=== PATIENT | female | born 1955 | race Caucasian/White ===

== ENCOUNTER 2021-11-13 17:59 | Inpatient (IN) | payer MEDICARE ==
[~2021-11-13] VITALS: Ht 149.9 cm; Wt 29.5 kg
[2021-11-13 19:05] LABS: BASOPHIL 0.6 % (0-2); EOSINOPHIL 0.5 % (0-7); HCT 40.3 % (37.0-47.0); HGB 13.6 g/dl (12.5-16.0); LYMPHOCYTE 23.3 % (15-48); MCH 32.6 pg (25.0-31.0); MCHC 33.7 g/dL (32.0-36.0); MCV 96.6 fL (78.0-100.0); MONOCYTE 8.3 % (0-12); MPV 10.4 fL (6.0-9.5); NEUTROPHIL 67.1 % (41-80); NRBC 0; PLT 262 K/uL (150-400); RBC 4.17 M/uL (4.20-5.40); RDW 12.9 % (11.5-14.0); WBC 6.7 K/uL (4.0-10.5)
[2021-11-13 19:15] LABS: ALBUMIN 3.6 g/dL (3.4-5.0); BILIRUBIN - TOTAL 0.4 mg/dL (0.2-1.0); BUN/CREAT RATIO (CALC) 20.6 RATIO; CREATININE 0.34 mg/dL (0.51-0.95); GLOBULIN (CALCULATION) 3.7 g/dL; POTASSIUM 3.5 mmol/L (3.5-5.1); TOTAL PROTEIN 7.3 g/dL (6.4-8.2)
[2021-11-13 19:20] LABS: INR 0.84 (0.9-1.2); PROTHROMBIN TIME 11.3 SECONDS (11.9-13.9); PTT 30.1 SECONDS (24.9-34.6)
[2021-11-13 19:31] LABS: CORONAVIRUS 2019 SARS-COV-2 NEGATIVE (NEGATIVE); INFLUENZA A NAA NEGATIVE (NEGATIVE)
[2021-11-13] MEDS ORDERED: LORAZEPAM1 MG PO (23:11)
[2021-11-13] MEDS ORDERED: SYMBICORT 16010.2 GM INH (23:11)
[2021-11-13] MEDS ORDERED: SPIRIVA RESPIMAT4 GM INH ×2 (23:12→23:13)
[2021-11-13] MEDS ORDERED: AMLODIPINE BESYL5 MG PO (23:13)
[2021-11-13] MEDS ORDERED: VENTOLIN HFA18 GM INH (23:14)
[2021-11-13] MEDS ORDERED: SINGULAIR10 MG PO (23:15)
[2021-11-13] MEDS ORDERED: NYSTATIN 112 TSP/BTL PO (23:16)
[2021-11-14 06:10] LABS: BASOPHIL 0.4 % (0-2); EOSINOPHIL 0 % (0-7); HCT 37.5 % (37.0-47.0); HGB 12.5 g/dl (12.5-16.0); MCHC 33.3 g/dL (32.0-36.0); MCV 95.9 fL (78.0-100.0); MONOCYTE 5.1 % (0-12); MPV 10.3 fL (6.0-9.5); NEUTROPHIL 79.1 % (41-80); NRBC 0; PLT 212 K/uL (150-400); RBC 3.91 M/uL (4.20-5.40); WBC 2.7 K/uL (4.0-10.5)
[2021-11-14 06:44] LABS: BILIRUBIN - TOTAL 0.3 mg/dL (0.2-1.0); CREATININE 0.33 mg/dL (0.51-0.95); GLOBULIN (CALCULATION) 3.3 g/dL; POTASSIUM 4.1 mmol/L (3.5-5.1); TOTAL PROTEIN 6.3 g/dL (6.4-8.2)
[2021-11-15 06:49] LABS: BASOPHIL 0 % (0-2); EOSINOPHIL 0 % (0-7); HCT 35.8 % (37.0-47.0); LYMPHOCYTE 8.3 % (15-48); MCH 32.1 pg (25.0-31.0); MCHC 33.5 g/dL (32.0-36.0); MCV 95.7 fL (78.0-100.0); MONOCYTE 7.1 % (0-12); NEUTROPHIL 84.4 % (41-80); NRBC 0; PLT 223 K/uL (150-400); RBC 3.74 M/uL (4.20-5.40); RDW 13.1 % (11.5-14.0)
[2021-11-15 06:50] LABS: WBC 4.8 K/uL (4.0-10.5)
[2021-11-15 07:24] LABS: CREATININE 0.32 mg/dL (0.51-0.95)
[2021-11-15 07:25] LABS: POTASSIUM 3.8 mmol/L (3.5-5.1)
[2021-11-17 07:31] LABS: BASOPHIL 0 % (0-2); EOSINOPHIL 0.2 % (0-7); HCT 34.9 % (37.0-47.0); HGB 11.5 g/dl (12.5-16.0); LYMPHOCYTE 20.9 % (15-48); MCH 32.3 pg (25.0-31.0); MONOCYTE 12.8 % (0-12); MPV 10.2 fL (6.0-9.5); NEUTROPHIL 65.8 % (41-80); NRBC 0; PLT 221 K/uL (150-400); RBC 3.56 M/uL (4.20-5.40); WBC 6.4 K/uL (4.0-10.5)
[2021-11-17 07:44] LABS: BUN/CREAT RATIO (CALC) 43.8 RATIO; CREATININE 0.32 mg/dL (0.51-0.95); POTASSIUM 3.6 mmol/L (3.5-5.1)
[2021-11-18] MEDS ORDERED: LIDOCAINE PAIN1 EACH TOP (09:07)
[2021-11-18] MEDS ORDERED: SACCHAROMYCES250 MG PO (09:07)
[2021-11-18] MEDS ORDERED: CARAFATE1 GM PO (09:07)
== END 2021-11-18 11:55 | disposition home or self-care (01) | DRG 193 ==
LOC: FER 17:59 → FMS 21:08
PROVIDERS: Internal Medicine; Nurse Practitioner; ADMIT Allergy & Immunology Allergy
DX: J18.9 Pneumonia, unspecified organism (principal); J96.21 Acute and chronic respiratory failure with hypoxia; B37.0 Candidal stomatitis; R64 Cachexia; Z68.1 Body mass index [BMI] 19.9 or less, adult; Z20.822 Contact with and (suspected) exposure to COVID-19; M25.559 Pain in unspecified hip; M81.0 Age-related osteoporosis without current pathological fracture; I10 Essential (primary) hypertension; K21.9 Gastro-esophageal reflux disease without esophagitis; F41.9 Anxiety disorder, unspecified; M51.36 Other intervertebral disc degeneration, lumbar region; F17.210 Nicotine dependence, cigarettes, uncomplicated; J43.9 Emphysema, unspecified; Z90.49 Acquired absence of other specified parts of digestive tract; Z82.49 Family history of ischemic heart disease and other diseases of the circulatory system; Z88.5 Allergy status to narcotic agent; Z88.8 Allergy status to other drugs, medicaments and biological substances; Z79.899 Other long term (current) drug therapy; Z28.311 Partially vaccinated for COVID-19
CPT/HCPCS: 36415; 36600; 71045; 72100; 80048; 80053; 82803; 83880; 84145; 84484; 85025; 85610; 85730; 93005; 94640; 94664; 94667; 94668; 94760; 97162; 97165; 97530-GP; J0456; J0696; J1650; J2930; J7050; J8540; U0002